=== PATIENT | female | born 1995 | race Caucasian/White ===

== ENCOUNTER 2024-05-15 17:57 | Emergency (ER) | payer BC, SELFPAY ==
[2024-05-15 18:01] VITALS: BP 121/82
--- NOTE | 2024-05-15 20:47 | ED.GENMED ---
History of Present Illness
General
Chief Complaint: Head Injury
Source: patient and family
Time Seen by Provider: 05/15/24 20:35
History of Present Illness
History of Present Illness:
28-year-old female presents here accompanied by her mother. States that she was drinking last night and does not recall, but was told by others that she fell on a bottom stair, hitting the back of her head. There was no loss of conscious, she got
up right away and continue now with her night. However, she notes vomiting throughout the night last vomiting was at 6:30 AM associated with prolonged nausea today and the back of her head feels 'sore'. She also feels very tired. She wonders
whether or not her symptoms could be related to closed head injury versus hangover versus coincidental gastroenteritis. She denies photophobia, difficulty concentrating, change in vision, neck pain, numbness, focal weakness, dizziness, difficulty
ambulating, or other complaints.
Past History
Past History
ED Past Medical History: Other (ADHD, MIGRAINE)
ED Past Surgical History: None
Social History
Tobacco: Non-smoker
Alcohol: Occasional
Drug: None
Personal: Single
Living: alone
Phy Exam
Physical Exam
Physical Exam:
GENERAL: Alert , in no apparent distress
EYE: pupils equal and reactive, no photophobia, EOMI
NECK: Supple, no significant adenopathy, no midline tenderness.
ENT: o/p clr, mmm, no hardy, no raccoon, no rhinorrhea, no signs of facial injury. There is a very subtle bruise noted at the posterior occiput without break in skin.
CARDIAC: Regular rate and rhythm .
LUNGS: Clear breath sounds bilaterally, no acute respiratory distress, no wheezes/rales/rhonchi
ABDOMEN: Soft, without focal tenderness, no r/g, no cvat
NEUROLOGICAL: Alert and oriented, no focal neuro deficits, gait normal, [id number] normal, cranial nerves II through XII intact, motor 5 out of 5, sensory intact
SKIN: Warm and dry, skin intact.
MUSCULOSKELETAL: No edema, well perfused.
PSYCH: Normal and appropriate interaction.
Course
Orders/Labs/Results
Orders:
Orders
05/15/24 18:10
CT Head W/o Iv Contrast Urgent
Comment:
Reason For Exam: fall, head injury
Vital Signs
Initial and Last Documented VS:
Initial Vital Signs
Temp Pulse Resp BP Pulse Ox
99.0 F 105 16 121/82 100
05/15/24 18:01 05/15/24 18:01 05/15/24 18:01 05/15/24 18:01 05/15/24 18:01
Last Documented Vital Signs
Temp Pulse Resp BP Pulse Ox
99.0 F 105 16 121/82 100
05/15/24 18:01 05/15/24 18:01 05/15/24 18:01 05/15/24 18:01 05/15/24 18:01
*Critical Care Note
Total Time (30-74mins, 75-104mins- exclusive of procedures): Not Applicable
Update Note
Update Note:
Patient presents to the Emergency Department with ___closed head injury nausea vomiting
Number and Complexity of Problems Addressed at the Encounter
� Chronic conditions affecting care:
� Acute Exacerbation and/or Progression of Chronic Illness:
� Differential Diagnosis includes: But not limited to alcohol related illness, closed head injury with concussion, intracranial bleed, gastroenteritis, etc. etc.
Amount and/or Complexity of Data to be Reviewed and Analyzed
� I performed an independent evaluation of and my interpretation is:
EKG:
CT: Read by radiology NAD
Xrays:
Laboratory Studies:
Other:
� Review of other/old records reveals:
� Clinical information was obtained by an independent historian: Mom who is at bedside
� Prescriptions/Medications Considered but not given:
� Further testing considered but not performed:
Risk of Complications and/or Morbidity or Mortality of Patient Management
� Social determinants of health affecting care:
� Discussion with other providers (PCP, Hospitalists, Consultants, etc):
� Escalation of care including admission/observation vs risk of discharge considered: 9:01 PM patient extremely relieved that head CT is unremarkable. It is still possible that her symptoms are related to a mild concussion and
therefore she was given concussion precautions as well as importance of follow-up and reasons return to the ER.
ED Attending Note
-
Portions of this chart may have been created with voice recognition software.� Occasional wrong word or��sound alike� substitutions may have occurred due to the inherent limitations of voice recognition software.
Discharge Plan
Departure
Patient Disposition: Home (Routine Discharge)
Date of Disposition: 05/15/24
Time of Disposition: 20:47
Patient with high blood pressure during this ER visit?: Yes
Condition: Good
Discharge Problem:
Head injury
Instructions: Concussion, Adult (DC), BLOOD PRESSURE, Acute Nausea and Vomiting
Prescriptions:
New
ondansetron HCl 4 mg tablet
4 mg PO Q8H PRN (Reason: nausea and vomiting) Qty: 5 0RF
Activity Restrictions/Additional Instructions:
IF YOU DEVELOP INCREASING/NEW/PERSISTENT HEADACHE, ANY NECK PAIN, REPEATED VOMITING, DIZZINESS, VISUAL CHANGES, GET WORSE, DO NOT GET BETTER, OR OTHER WORRISOME SIGNS, GO TO THE ER IMMEDIATELY!
Interventions
Interventions:
*Risk Screen - Suicide Last Done: 05/15/24 18:01
*General Assessment Last Done: 05/15/24 18:01
*ED COVID-19 Vaccine History Last Done: 05/15/24 18:01
Discharge Date and Time
Print Language: S[place]
[2024-05-15 21:00] VITALS: BP 134/85
== END 2024-05-15 21:02 | disposition home or self-care (01) ==
LOC: EMR 17:57
PROVIDERS: EMERGENCY PHYSICIAN Emergency Medicine
DX: S00.03XA Contusion of scalp, initial encounter (principal); W19.XXXA Unspecified fall, initial encounter
CPT/HCPCS: 99284; 70450